=== PATIENT | male | born 1980 | race Caucasian/White ===

== ENCOUNTER 2020-08-27 20:07 | Emergency (ER) | payer BC, OTHER ==
[~2020-08-27] VITALS: Ht 182.9 cm; Wt 106.6 kg
--- NOTE | 2020-08-27 20:28 | ED EENT ---
History of Present Illness General Chief Complaint: Oral/Throat Problems Stated Complaint: INFECTION IN THROAT Source: patient Exam Limitations: no limitations History of Present Illness Date Seen by Provider: Aug 27, 2020 Time Seen by Provider: 20:26 Initial Comments To ER with reports of an infection in his throat. He was seen on Sunday of this week with right-sided tonsil infection. Was seen at Dr[facility] and given a shot of steroids and a prescription for Z-Easton. They then called back today because of failure to improve and was given prescription for Omnicef. He was also given Valtrex. This was to be taken 3 times daily for 7 days as he developed a lesion on the right side of his tongue as well as a cluster of lesions to the right side of the bottom lip just below the vermilion border. The symptoms began at the same time as the sore throat on the right side. Timing/Duration: this morning Severity: moderate Location: throat Prearrival Treatment: prescription meds Allergies and Home Medications Allergies Coded Allergies: No Known Drug Allergies (Unverified , 08/27/20) Home Medications Prednisone 20 Mg Tab, 40 MG PO DAILY Prescribed by: LG FLORES on 08/27/202115 Patient Home Medication List Home Medication List Reviewed: Yes Review of Systems Review of Systems Constitutional: see HPI Eyes: No Symptoms Reported Ears: No Symptoms Reported Nose: no symptoms reported Mouth: no symptoms reported Throat: see HPI, pain, swelling Respiratory: no symptoms reported Cardiovascular: no symptoms reported Musculoskeletal: no symptoms reported Skin: no symptoms reported Neurological: No Symptoms Reported Hematologic/Lymphatic: No Symptoms Reported Immunological/Allergic: no symptoms reported Past [id number]-[id number] Hx Patient Social History Alcohol Use: Occasionally Uses Number of Drinks Today: 0 Smoking Status: Never a Smoker 2nd Hand Smoke Exposure: No Physical Exam Vital Signs Vital Signs - First Documented 08/27/20 20:14 Temp 35.8 Pulse 72 Resp 16 B/P (MAP) 166/108 (127) Height, Weight, BMI Height: '" Weight: lbs. oz. kg; BMI Method: General Appearance: WD/WN, no apparent distress Eyes: bilateral eye normal inspection, bilateral eye PERRL, bilateral eye EOMI Ears: bilateral ear auricle normal, bilateral ear canal normal, bilateral ear TM normal Mouth/Throat: tonsillar exudate, other (There is a normally positioned uvula. No deviation. The right tonsil is somewhat swollen with exudate. However there is no grossly obvious peritonsillar abscess on clinical exam. He does have an enlarged right submandibular lymph node.) Neck: non-tender, full range of motion, lymphadenopathy (R) Cardiovascular: regular rate, rhythm, no murmur Respiratory: no respiratory distress, no accessory muscle use Neurologic/Psychiatric: alert, normal mood/affect, oriented x 3 Skin: normal color, warm/dry There is a very small pea-sized cluster of crusted vesicles on the right lip just inferior to the vermilion border on the bottom. Progress/Results/Core Measures Results/Orders Lab Results Laboratory Tests Test 08/27/20 20:15 Range/Units White Blood Count 7.8 4.3-11.0 10^3/uL Red Blood Count 5.56 H 4.30-5.52 10^6/uL Hemoglobin 15.8 13.3-17.7 g/dL Hematocrit 49 40-54 % Mean Corpuscular Volume 89 80-99 fL Mean Corpuscular Hemoglobin 28 25-34 pg Mean Corpuscular Hemoglobin Concent 32 32-36 g/dL Red Cell Distribution Width 12.8 10.0-14.5 % Platelet Count 336 130-400 10^3/uL Mean Platelet Volume 9.1 9.0-12.2 fL Immature Granulocyte % (Auto) 0 % Neutrophils (%) (Auto) 78 H 42-75 % Lymphocytes (%) (Auto) 13 12-44 % Monocytes (%) (Auto) 9 0-12 % Eosinophils (%) (Auto) 0 0-10 % Basophils (%) (Auto) 0 0-10 % Neutrophils # (Auto) 6.1 1.8-7.8 10^3/uL Lymphocytes # (Auto) 1.0 1.0-4.0 10^3/uL Monocytes # (Auto) 0.7 0.0-1.0 10^3/uL Eosinophils # (Auto) 0.0 0.0-0.3 10^3/uL Basophils # (Auto) 0.0 0.0-0.1 10^3/uL Immature Granulocyte # (Auto) 0.0 0.0-0.1 10^3/uL Sodium Level 139 135-145 MMOL/L Potassium Level 4.1 3.6-5.0 MMOL/L Chloride Level 101 98-107 MMOL/L Carbon Dioxide Level 23 21-32 MMOL/L Anion Gap 15 H 5-14 MMOL/L Blood Urea Nitrogen 12 7-18 MG/DL Creatinine 1.08 0.60-1.30 MG/DL Estimat Glomerular Filtration Rate > 60 BUN/Creatinine Ratio 11 Glucose Level 79 70-105 MG/DL Calcium Level 9.9 8.5-10.1 MG/DL C-Reactive Protein High Sensitivity 3.82 H 0.00-0.50 MG/DL My Orders Orders - LG FLORES APRN Cbc With Automated Diff (08/27/20 20:22) Basic Metabolic Panel (08/27/20 20:22) Hs C Reactive Protein (08/27/20 20:22) Ct Neck (Soft Tissue) W (08/27/20 20:22) Ed Iv/Invasive Line Start (08/27/20 20:22) Ketorolac Injection (Toradol Injection) (08/27/20 20:30) Lactated Ringers (Lr 1000 Ml Iv Solution (08/27/20 20:30) Iohexol Injection (Omnipaque 350 Mg/Ml 1 (08/27/20 21:00) Received Contrast (Hold Metformin- Contr (08/27/20 21:00) Ns (Ivpb) (Sodium Chloride 0.9% Ivpb Bag (08/27/20 21:00) Ceftriaxone For Iv Use (Rocephin For I (08/27/20 21:15) Dexamethasone Injection (Decadron Inje (08/27/20 21:15) Medications Given in ED Current Medications Medications Dose Ordered Sig/Bettina Route Start Time Stop Time Status Last Admin Dose Admin Ceftriaxone Sodium 1000 mg/ Sterile Water 10 ml @ 200 mls/hr ONCE ONCE IV 08/27/20 21:15 08/27/20 21:17 DC 08/27/20 21:28 200 MLS/HR Dexamethasone Sodium Phosphate 10 mg ONCE ONCE IV 08/27/20 21:15 08/27/20 21:16 DC 08/27/20 21:27 10 MG Iohexol 100 ml ONCE ONCE IV 08/27/20 21:00 08/27/20 21:01 UNV 08/27/20 20:50 75 ML Ketorolac Tromethamine 15 mg ONCE ONCE IVP 08/27/20 20:30 08/27/20 20:31 DC 08/27/20 20:34 15 MG Sodium Chloride 100 ml ONCE ONCE IV 08/27/20 21:00 08/27/20 21:01 UNV 08/27/20 20:50 80 ML Vital Signs/I&O 08/27/20 20:14 Temp 35.8 Pulse 72 Resp 16 B/P (MAP) 166/108 (127) Departure Impression Primary Impression: Pharyngitis Disposition: HOME, SELF-CARE Condition: Stable Departure-Patient Inst. Decision time for Depature: 21:15 Referrals: WINNIE LINDER MD (PCP) Primary Care Physician Patient Instructions: Sore Throat, Adult (DC) Add. Discharge Instructions: 1. Steroids as directed. Antibiotics as directed to the Omnicef. All discharge instructions reviewed with patient and/or family. Voiced unde rstanding. Scripts Prednisone (Prednisone) 20 Mg Tab 40 MG PO DAILY, #6 TAB 0 Refills Prov: LG FLORES APRN 08/27/20 LG FLORES APRN Aug 27, 2020 20:28
[2020-08-27 20:30] LABS: BASOPHILS % (AUTO) 0 % (0-10); EOSINOPHILS % (AUTO) 0 % (0-10); HEMATOCRIT 49 % (40-54); HEMOGLOBIN 15.8 g/dL (13.3-17.7); LYMPHOCYTES % (AUTO) 13 % (12-44); MEAN CORPUSCULAR HEMOGLOBIN 28 pg (25-34); MEAN CORPUSCULAR HGB CONC 32 g/dL (32-36); MEAN CORPUSCULAR VOLUME 89 fL (80-99); MEAN PLATELET VOLUME 9.1 fL (9.0-12.2); MONOCYTES # (AUTO) 0.7 10^3/uL (0.0-1.0); MONOCYTES % (AUTO) 9 % (0-12); NEUTROPHILS # (AUTO) 6.1 10^3/uL (1.8-7.8); NEUTROPHILS % (AUTO) 78 % (42-75); PLATELET COUNT 336 10^3/uL (130-400); WHITE BLOOD COUNT 7.8 10^3/uL (4.3-11.0)
[2020-08-27] MEDS ORDERED: KETOROLAC 30 MG/ML VIAL IVP ONE (20:30)
[2020-08-27] MEDS ORDERED: LACTATED RINGERS 1,000 ML IV SCH (20:30)
[2020-08-27 20:43] LABS: BUN/CREATININE RATIO 11; CALCIUM 9.9 MG/DL (8.5-10.1); CARBON DIOXIDE 23 MMOL/L (21-32); CHLORIDE 101 MMOL/L (98-107); CREATININE SERUM 1.08 MG/DL (0.60-1.30); GFR ESTIMATED > 60; GLUCOSE 79 MG/DL (70-105); POTASSIUM 4.1 MMOL/L (3.6-5.0); SODIUM 139 MMOL/L (135-145)
[2020-08-27] MEDS ORDERED: IOHEXOL 350 MG/ML 100 ML (OMNIPAQUE 350) VIAL IV ONE (21:00)
[2020-08-27] MEDS ORDERED: NS 100 ML (IVPB) BAG IV ONE (21:00)
[2020-08-27] MEDS ORDERED: HOLD METFORMIN - RECEIVED CONTRAST 20 ML VIAL IV SCH (21:00)
--- NOTE | 2020-08-27 21:12 | Diagnostic Imaging Report ---
INDICATION: Tonsillar swelling. EXAMINATION: Noncontrasted soft tissue neck CT performed. FINDINGS: There is asymmetry and soft tissue fullness at the level of the right tonsil. No definite abscess is found; however, sensitivity significantly limited by the absence of contrast media. Free edge of the epiglottis and the aryepiglottic folds appears normal at the time of this study. The vocal folds were held in position. The prevertebral and retropharyngeal spaces appear unremarkable. No significant airway embarrassment. The infra-laryngeal trachea was widely patent. The thoracic inlet and visualized pulmonary apices are unremarkable. The bony structures appear nonacute. IMPRESSION: 1. There is fullness at the level of the right tonsil which is likely tonsillitis, correlate with pain. No definite abscess, however, sensitivity limited by the lack of contrast. No appreciable fluid collection. 2. Normal prevertebral and retropharyngeal spaces. Normal epiglottis. No airway embarrassment. Dictated by: Dictated on workstation # [id number]
[2020-08-27] MEDS ORDERED: cefTRIAXone FOR IV USE 1,000 MG in WATER (STERILE) FOR INJECTION 10 ML IV ONE (21:15)
[2020-08-27] MEDS ORDERED: PRD20T PO (21:16)
[2020-08-27 21:32] VITALS: BP 139/81
== END 2020-08-27 21:32 | disposition home or self-care (01) ==
LOC: ER 20:11
DX: J02.9 Acute pharyngitis, unspecified (principal); Z79.52 Long term (current) use of systemic steroids
CPT/HCPCS: 36415; 70491; 80048; 85025; 86141